=== PATIENT | female | born 2000 | race Two or more races ===

== ENCOUNTER 2024-04-02 14:51 | Day surgery (SDC) | payer OTHER ==
[~2024-04-02] VITALS: Ht 152.4 cm; Wt 90.7 kg
--- NOTE | 2024-04-02 11:54 | NUR ---
PACIENTE ALERTA Y ORIENTADA X3 QUIEN VERBALIZA ESTAR EMBARAZADA Y QUE LE REALIZARON UN ESTUDIO DE SONOGRAFIA EL ROSALIA DE CURTIS DONDE LA SONOGRAFISTA LLAMA A AL DR RODRIGUEZ Y CHRISTOPHER LE INDICA A PASAR POR COCO DE EMERGENCIAS PARA REALIZARLE UN RASPE. SE MONITOREAN S/V, SE LE PRESENTA A DR INFANZON Y SE UBICA PACIENTE.
--- NOTE | 2024-04-02 12:31 | NUR ---
PACIENTE ALERTA Y ORIENTADA X3. SE ORIENTA SOBRE TX MEDICO Y REFIERE ENTENDER. SE REALIZAN MUESTRAS DE LAB BAJO MEDIDAS ASEPTICAS. SE ABRE ACCESO VENOSO. SE COLOCAN IV FLUIDS HERMES ORDEN MEDICA.
[2024-04-02 12:52] LABS: HEMATOCRIT 32.7 % (36.0-45.00); HEMOGLOBIN 10.8 g/dL (12.0-15.00); MEAN CORPUSCULAR HEMOGLOBIN 21.2 pg (27.00-32.0); MEAN CORPUSCULAR HGB CONC 32.9 g/dl (32.0-36.0); PLATELET COUNT 360 K/uL (150-450); RED BLOOD COUNT 5.07 M/uL (4.00-6.00); RED CELL DISTRIBUTION WIDTH 22.9 % (11.5-14.5)
[2024-04-02 12:59] LABS: MEAN CELL VOLUME 64.5 fL (80.00-100.00)
[2024-04-02 13:24] LABS: CALCIUM 9.2 mg/dL (8.5-10.1); CREATININE SERUM 0.39 mg/dL (0.55-1.02); GFR 201.91; POTASSIUM 3.75 mEq/L (3.5-5.1)
[2024-04-02 13:26] LABS: INR 1.05; PARTIAL THROMBOPLASTIN TIME 31.9 SECONDS (22.0-34.0)
[~2024-04-02 14:51] MED LIST: RINGERS SOLUTION,LACTATED 1,000 ML IV STA
--- NOTE | 2024-04-02 14:57 | NUR ---
PACIENTE ALERTA Y ORIENTADA X3 A QUIEN SE LE ORIENTA SOBRE NUEVO TRATAMIENTO Y VERBALIZA ENTENDER, SE LE HACE ENTREGA A PACIENTE ROPA DE OR PARA CAMBIO DE LA MISMA, PENDIENTE SUBIR A OR EN PROXIMO TURNO. SE LE ORIENTA SOBRE ENTREGAR PERTENCIAS A FAMILIAR.
[2024-04-02 15:33] LABS: PH,URINE 5.5 (5.0-8.0); URINE APPEARANCE Cloudy; URINE BACTERIA 5144.3 uL (0.0-1933); URINE BILIRRUBIN Negative (NEGATIVE); URINE BLOOD Negative; URINE COLOR Yellow; URINE EPITHELIAL CELLS 107.9 uL (0.0-38.8); URINE GLUCOSE Negative (NEGATIVE); URINE LEUKOCYTE Large; URINE NITRATE Negative; URINE PROTEIN Trace (NEGATIVE); URINE WBC 347.4 uL (0.0-23.2)
[2024-04-02 15:48] LABS: URINE CAST 0.76 uL (0.0-1.40); URINE KETONE >=160 (NEGATIVE); URINE YEAST FEW /hpf
[2024-04-02] MEDS ORDERED: POVIDONE-IODINE 118 ML BOTT TOP ONE (16:45)
[2024-04-02] MEDS ORDERED: KETOROLAC TROMETHAMINE 60 MG VIAL IM STA (18:32)
[2024-04-02] MEDS ORDERED: RINGERS SOLUTION,LACTATED 1,000 ML IV SCH (18:45)
== END 2024-04-02 21:25 | disposition home or self-care (01) ==
LOC: CIR.AMB 14:51 → SEC-K 14:51 → ER 14:51 → CIR.AMB 14:51 → O/R 14:51 → SEC-K 16:18 → O/R 16:18 → CIR.AMB 21:25
PROVIDERS: ATTEND General Practice
DX: O02.1 Missed abortion (principal)

== ENCOUNTER 2024-11-23 10:33 | Emergency (ER) | payer OTHER ==
[~2024-11-23] VITALS: Ht 157.5 cm; Wt 91.2 kg
[2024-11-23] MEDS ORDERED: CETIRIZINE HCL 5 MG/5 ML ML PO ONE (11:45)
[2024-11-23 12:48] LABS: HEMOGLOBIN 9.5 g/dL (12.0-15.00); MEAN CELL VOLUME 70.1 fL (80.00-100.00); MEAN CORPUSCULAR HEMOGLOBIN 22.1 pg (27.00-32.0); MEAN CORPUSCULAR HGB CONC 31.8 g/dl (32.0-36.0); PLATELET COUNT 298 K/uL (150-450); RED BLOOD COUNT 4.28 M/uL (4.00-6.00); RED CELL DISTRIBUTION WIDTH 22.1 % (11.5-14.5)
[2024-11-23] MEDS ORDERED: ZYRTEC10 MG PO (13:54)
== END 2024-11-23 13:58 | disposition home or self-care (01) ==
LOC: ER 10:34
PROVIDERS: General Practice
DX: R53.81 Other malaise (principal); R09.81 Nasal congestion; Z3A.23 23 weeks gestation of pregnancy; Z20.822 Contact with and (suspected) exposure to COVID-19

== ENCOUNTER 2025-03-10 08:14 | Outpatient (CLI) | payer OTHER ==
[~2025-03-10 08:14] MED LIST changes: -RINGERS SOLUTION,LACTATED 1,000 ML IV STA; +ZYRTEC10 MG PO
== END 2025-03-10 08:23 | disposition home or self-care (01) ==
LOC: PRENATAL 08:14
PROVIDERS: ATTEND Obstetrics & Gynecology
DX: Z76.1 Encounter for health supervision and care of foundling (principal)

== ENCOUNTER 2025-03-18 06:03 | Inpatient (IN) | payer OTHER ==
[2025-03-18] VITALS (8 sets, daily range): BP systolic 94–137; BP diastolic 57–87; O2SAT 98
[~2025-03-18] VITALS: Ht 157.5 cm; Wt 93.4 kg
[2025-03-18] MEDS ORDERED: PRENATABS RX T1 EACH PO (06:44)
[2025-03-18] MEDS ORDERED: RINGERS SOLUTION,LACTATED 1,000 ML IV SCH (07:00)
[2025-03-18] MEDS ORDERED: AMPICILLIN SODIUM 2,000 MG VIAL IV ONE (07:00)
[2025-03-18 07:51] LABS: URINE APPEARANCE Clear; URINE BILIRRUBIN Negative (NEGATIVE); URINE BLOOD Negative; URINE COLOR Yellow; URINE GLUCOSE Negative (NEGATIVE); URINE KETONE Negative (NEGATIVE); URINE LEUKOCYTE Large; URINE NITRATE Negative; URINE PROTEIN Negative (NEGATIVE); URINE UROBILINOGEN 1.0 E.U./dl
[2025-03-18 07:54] LABS: URINE BACTERIA 1579.1 uL (0.0-1933); URINE EPITHELIAL CELLS 27.6 uL (0.0-38.8); URINE WBC 106.9 uL (0.0-23.2)
[2025-03-18 07:56] LABS: BASO % 0.3 % (0.1-1.2); EOS # 0.09 (0.04-0.54); EOS % 1.0 % (0.7-7.0); LYMPH # 1.83 (1.18-3.74); LYMPH % 20.4 % (19.3-53.1); MONO # 0.67 (0.24-0.82); MONO % 7.5 % (4.7-12.5); NEUT # 6.28 (1.56-6.13); NEUT % 70.1 % (34.0-71.1)
[2025-03-18] MEDS ORDERED: AMPICILLIN SODIUM 1,000 MG VIAL IV SCH (08:00)
[2025-03-18 08:14] LABS: RED CELL DISTRIBUTION WIDTH 26.0 % (11.6-14.4)
[2025-03-18 08:27] LABS: URINE CAST 0.58 uL (0.0-1.40); URINE RBC 1.6 uL (0.0-20.8); URINE YEAST FEW /hpf
[2025-03-18 08:28] LABS: ALT/SGPT 58.0 U/L (12-78); AST/SGOT 24.0 U/L (15-37); BILIRUBIN TOTAL 0.83 mg/dL (0.3-1.2); BUN CREA RATIO 10.0 (7.0-25.0); CREATININE SERUM 0.39 mg/dL (0.55-1.02); GFR 200.24; GLOBULINA 3.7 G/DL (2.4-3.5); GLUCOSE FASTING 73.0 mg/dL (65-100); OSMOLALITY SERUM 271.0 MOSM/KG (275-295)
[2025-03-18 08:57] LABS: INR 0.98
[2025-03-18] MEDS ORDERED: OXYTOCIN 20 UNITS/500ML RL PIGGYBAG IV SCH (14:45)
[2025-03-18] MEDS ORDERED: OXYTOCIN 20 UNITS/500ML RL PIGGYBAG IV ONE (15:06)
[2025-03-18] MEDS ORDERED: ERYTHROMYCIN BASE OPHT 1GM EACH TUBE OP ONE (16:00)
[2025-03-18] MEDS ORDERED: OXYTOCIN 20 UNITS/1000ML RL PIGGYBAG IV ONE (16:00)
[2025-03-18] MEDS ORDERED: LIDOCAINE HCL 1% 10ML VIAL ONE (16:01)
[2025-03-18] MEDS ORDERED: CHLORHEXIDINE GLUCONATE 120 ML BOTTLE TOP ONE (16:01)
[2025-03-18] MEDS ORDERED: ACETAMINOPHEN 500 MG GEL..CAP PO PRN (18:15)
[2025-03-18] MEDS ORDERED: OXYTOCIN 1,000 ML IV SCH (18:15)
[2025-03-18] MEDS ORDERED: CHLORHEXIDINE GLUCONATE 120 ML BOTTLE TP SCH (18:15)
[2025-03-18 20:25] LABS: BASO % 0.1 % (0.1-1.2); EOS # 0.00 (0.04-0.54); EOS % 0.0 % (0.7-7.0); LYMPH # 1.33 (1.18-3.74); LYMPH % 8.6 % (19.3-53.1); MONO # 0.68 (0.24-0.82); MONO % 4.4 % (4.7-12.5); NEUT # 13.35 (1.56-6.13); NEUT % 86.4 % (34.0-71.1)
[2025-03-18 21:10] LABS: LYMPHOCYTE MAN 10.0 %; MONOCYTE MAN 5.0 %; NEUTROPHILS MAN 85.0 %; RED CELL DISTRIBUTION WIDTH 25.9 % (11.6-14.4)
[2025-03-19 01:46] VITALS: BP 100/62
[2025-03-19 08:21] VITALS: BP 104/69
[2025-03-19] MEDS ORDERED: PNV,CALCIUM 72/IRON/FOLIC ACID 1 TAB TABLET PO SCH (09:00)
[2025-03-19 13:22] VITALS: BP 103/64
[2025-03-19 17:37] VITALS: BP 97/66
[2025-03-20] VITALS: BP 107/71
[2025-03-20 08:31] VITALS: BP 98/63
== END 2025-03-20 15:18 | disposition home or self-care (01) | DRG 807 ==
LOC: LDR 06:03 → OB/GYN 16:58
PROVIDERS: ADMIT Obstetrics & Gynecology; ATTEND Obstetrics & Gynecology
PROC: 10E0XZZ Delivery of Products of Conception, External Approach (ICD-10-PCS; principal; 2025-03-18)
PROC: 0HQ9XZZ Repair Perineum Skin, External Approach (ICD-10-PCS; 2025-03-18)
PROC: 4A1HXCZ Monitoring of Products of Conception, Cardiac Rate, External Approach (ICD-10-PCS; 2025-03-18)
DX: O70.0 First degree perineal laceration during delivery (principal); Z37.0 Single live birth; Z3A.39 39 weeks gestation of pregnancy

== ENCOUNTER 2025-04-20 04:05 | Inpatient (IN) | payer OTHER ==
[~2025-04-20] VITALS: Ht 157.5 cm; Wt 83.9 kg
[~2025-04-20 04:05] MED LIST changes: +PRENATABS RX T1 EACH PO
[2025-04-20] MEDS ORDERED: FAMOTIDINE/PF 20 MG/2 ML VIAL IV PUSH STA (06:03)
[2025-04-20] MEDS ORDERED: PROMETHAZINE HCL 50 MG/ML AMPUL IM STA (06:03)
[2025-04-20] MEDS ORDERED: 0.9 % SODIUM CHLORIDE 1,000 ML IV ONE (06:15)
[2025-04-20] MEDS ORDERED: HYOSCYAMINE SULFATE 0.125 MG TAB.SUBL SL ONE (06:15)
[2025-04-20 07:46] LABS: BASO % 0.1 % (0.1-1.2); EOS # 0.00 (0.04-0.54); EOS % 0.0 % (0.7-7.0); LYMPH # 0.82 (1.18-3.74); LYMPH % 5.2 % (19.3-53.1); MEAN PLATELET VOLUME 9.90 fl (9.4-12.4); MONO # 0.48 (0.24-0.82); MONO % 3.1 % (4.7-12.5); NEUT # 14.26 (1.56-6.13); NEUT % 91.2 % (34.0-71.1); RED CELL DISTRIBUTION WIDTH 24.1 % (11.6-14.4)
[2025-04-20 08:32] LABS: URINE APPEARANCE Cloudy; URINE BILIRRUBIN Large (NEGATIVE); URINE BLOOD Negative; URINE COLOR Dark Yellow; URINE GLUCOSE Negative (NEGATIVE); URINE KETONE Trace (NEGATIVE); URINE LEUKOCYTE Small; URINE NITRATE Negative; URINE PROTEIN 30 (NEGATIVE); URINE UROBILINOGEN 1.0 E.U./dl
[2025-04-20 08:35] LABS: URINE BACTERIA 57.6 uL (0.0-1933); URINE EPITHELIAL CELLS 138.5 uL (0.0-38.8); URINE RBC 6.4 uL (0.0-20.8); URINE WBC 64.2 uL (0.0-23.2)
[2025-04-20 08:48] LABS: URINE CAST 0.29 uL (0.0-1.40)
[2025-04-20 09:09] LABS: ALT/SGPT 308.0 U/L (12-78); AST/SGOT 419.0 U/L (15-37); BILIRUBIN TOTAL 3.46 mg/dL (0.3-1.2); BUN CREA RATIO 8.0 (7.0-25.0); CREATININE SERUM 0.59 mg/dL (0.55-1.02); GFR 124.19; GLOBULINA 3.8 G/DL (2.4-3.5); GLUCOSE FASTING 152.0 mg/dL (65-100); OSMOLALITY SERUM 283.0 MOSM/KG (275-295)
[2025-04-20] MEDS ORDERED: PIPERACILLIN/TAZOBACTAM SODIUM 3.375 GM VIAL IV ONE (10:00)
[2025-04-20] MEDS ORDERED: FAMOTIDINE/PF 20 MG in 0.9 % SODIUM CHLORIDE 8 ML IV PUSH SCH (17:35)
[2025-04-20] MEDS ORDERED: ONDANSETRON HCL 4 MG in 0.9 % SODIUM CHLORIDE 50 ML IV PRN (17:45)
[2025-04-20] MEDS ORDERED: 0.9 % SODIUM CHLORIDE 1,000 ML IV SCH (17:45)
[2025-04-20] MEDS ORDERED: ACETAMINOPHEN 500 MG GEL..CAP PO PRN (17:45)
[2025-04-20] MEDS ORDERED: PIPERACILLIN/TAZOBACTAM SODIUM 3.375 GM in DEXTROSE 5 % IN WATER 100 ML IV SCH (18:00)
[2025-04-20 19:04] VITALS: BP 104/68
[2025-04-20 21:53] LABS: INR 1.11
[2025-04-20 22:39] LABS: ALT/SGPT 246.0 U/L (12-78); AST/SGOT 171.0 U/L (15-37); BILIRUBIN TOTAL 1.72 mg/dL (0.3-1.2); BILIRUBIN,CONJUGATED 0.8 mg/dL (0.0-0.2)
[2025-04-21 02:16] VITALS: BP 110/72; O2SAT 100
[2025-04-21 09:02] VITALS: BP 111/70; O2SAT 98
[2025-04-21 13:12] LABS: ALT/SGPT 162.0 U/L (12-78); AST/SGOT 59.0 U/L (15-37); BILIRUBIN TOTAL 1.31 mg/dL (0.3-1.2); BUN CREA RATIO 10.0 (7.0-25.0); CREATININE SERUM 0.59 mg/dL (0.55-1.02); GFR 124.19; GLOBULINA 3.1 G/DL (2.4-3.5); GLUCOSE FASTING 91.0 mg/dL (65-100); OSMOLALITY SERUM 284.0 MOSM/KG (275-295)
[2025-04-21 13:14] LABS: ALT/SGPT 160.0 U/L (12-78); AST/SGOT 59.0 U/L (15-37); BILIRUBIN TOTAL 1.29 mg/dL (0.3-1.2); BILIRUBIN,CONJUGATED 0.5 mg/dL (0.0-0.2)
[2025-04-21 17:42] VITALS: BP 100/60; O2SAT 98
[2025-04-21] MEDS ORDERED: FAMOTIDINE/PF 20 MG in 0.9 % SODIUM CHLORIDE 8 ML IV PUSH SCH (21:00)
[2025-04-22 01:00] VITALS: BP 104/66; O2SAT 96
[2025-04-22 08:46] VITALS: BP 102/60; O2SAT 97
[2025-04-22] MEDS ORDERED: LACTOBACILLUS ACIDOPHILUS 1 CAP CAP PO SCH (17:00)
[2025-04-22 17:47] VITALS: BP 102/60; O2SAT 97
[2025-04-23 02:02] VITALS: BP 91/57; O2SAT 90
[2025-04-23 07:07] LABS: ALT/SGPT 49.0 U/L (12-78); AST/SGOT 9.0 U/L (15-37); BILIRUBIN TOTAL 0.8 mg/dL (0.3-1.2); GLOBULINA 2.2 G/DL (2.4-3.5); GLUCOSE FASTING 63.0 mg/dL (65-100); OSMOLALITY SERUM 283.0 MOSM/KG (275-295)
[2025-04-23 07:41] LABS: BUN CREA RATIO 11.0 (7.0-25.0); GFR 293.52
[2025-04-23 07:43] LABS: CREATININE SERUM 0.28 mg/dL (0.55-1.02)
[2025-04-23] MEDS ORDERED: POTASSIUM CHLORIDE 20MEQ/100ML H2O PB IV NR (08:00)
[2025-04-23 09:25] VITALS: BP 108/73; O2SAT 93
[2025-04-23] MEDS ORDERED: FAMOTIDINE/PF 20 MG/2 ML VIAL ONE (16:27)
[2025-04-23] MEDS ORDERED: PIPERACILLIN/TAZOBACTAM SODIUM 3.375 GM VIAL IV ONE (16:27)
[2025-04-23 18:05] VITALS: BP 106/65; O2SAT 97
== END 2025-04-23 17:00 | disposition home or self-care (01) | DRG 444 ==
LOC: ER 04:11 → MEDJ 17:48 → SEC-K 17:48 → MEDJ 18:42
PROVIDERS: General Practice; ADMIT Internal Medicine; ATTEND Internal Medicine
PROC: BW40ZZZ Ultrasonography of Abdomen (ICD-10-PCS; principal; 2025-04-20)
PROC: BF37ZZZ Magnetic Resonance Imaging (MRI) of Pancreas (ICD-10-PCS; 2025-04-21)
DX: K80.43 Calculus of bile duct with acute cholecystitis with obstruction (principal); K85.10 Biliary acute pancreatitis without necrosis or infection; R11.0 Nausea; R74.01 Elevation of levels of liver transaminase levels; Z20.822 Contact with and (suspected) exposure to COVID-19

== ENCOUNTER → 2025-05-11 | Emergency (ER) | payer OTHER | END | disposition left against medical advice (07) | LOC: ER 11:35 | DX: Z53.21 Procedure and treatment not carried out due to patient leaving prior to being seen by health care provider (principal) ==